=== PATIENT | male | born 1950 | race Caucasian/White ===

== ENCOUNTER 2019-03-05 10:00 | Day surgery (SDC) | payer MEDICARE ==
[2019-03-05] MEDS ORDERED: Lactated Ringers 1,000 ML IV SCH (10:45)
[2019-03-05] MEDS ORDERED: Propofol 200 MG/20 ML SDV ONE ×2 (12:06→12:44)
[2019-03-05] MEDS ORDERED: Midazolam 1 MG/ML 2 ML SDV ONE (12:06)
[2019-03-05] MEDS ORDERED: fentaNYL 100 MCG/2 ML SDV ONE (12:06)
--- NOTE | 2019-03-08 07:43 | OR ---
DATE OF PROCEDURE: 03/05/2019 PREOPERATIVE DIAGNOSIS: Strong family history of colon cancer--mother had colon cancer. POSTOPERATIVE DIAGNOSES: Strong family history of colon cancer--mother had colon cancer. Diverticulosis. PROCEDURE: Colonoscopy to the cecum. SURGEON: Chacorta Sterling MD ANESTHESIA: IV anesthesia with monitored anesthesia care. INDICATION: This 69-year-old white male was referred for a colonoscopy. In the record, it says he has a history of polyps. He says it is his who has the polyps. He says his mother had colon cancer, and that is why he is having a colonoscopy every 5 years. His last colonoscopic exam then was 5 years ago. I counseled him for the procedure, including risks and alternatives, and he gave his informed consent to proceed. DESCRIPTION OF PROCEDURE: The patient was placed in the left lateral decubitus position. IV anesthesia was administered by the Anesthesia Service. Time-out was held. A rectal exam was performed, which was unremarkable. The flexible video Olympus colonoscope was introduced through his anus, up his rectum, and out his colon all the way to the cecum. The prep was very poor. We did a lot of washing to be able to see mucosa. We could not visualize all the mucosa. To reach the cecum, we had to apply abdominal compression in both the left lateral and supine positions. En route to the cecum, we did see a couple of right- sided diverticula. There was no bleeding or inflammation associated with them. Once the cecum was reached, the scope was slowly withdrawn examining the visualized mucosa. No additional mucosal abnormalities were noted. The scope was retroflexed in the rectum with the distal rectum appearing unremarkable. The scope was straightened and removed. He tolerated the procedure well. Chacorta Sterling MD /[id number]
== END 2019-03-05 14:41 | disposition home or self-care (01) ==
LOC: JP.SDS 10:00
PROVIDERS: ATTEND Surgery
DX: Z12.11 Encounter for screening for malignant neoplasm of colon (principal); K57.30 Diverticulosis of large intestine without perforation or abscess without bleeding; G47.33 Obstructive sleep apnea (adult) (pediatric); Z86.010 Personal history of colon polyps; Z99.89 Dependence on other enabling machines and devices; Z80.0 Family history of malignant neoplasm of digestive organs; Z88.0 Allergy status to penicillin; Z88.2 Allergy status to sulfonamides; Z88.1 Allergy status to other antibiotic agents
CPT/HCPCS: 45378; J2250; J2704; J3010; J7120